=== PATIENT | male | born 1970 ===

== ENCOUNTER 2024-10-05 11:59 | Outpatient (REF) | payer OTHER, SELFPAY ==
--- OUTSIDE RECORDS SUMMARY | 2024-08-20 17:30 | XMS_ITS ---
Author Organization [facility] Address [address] [facility] [address] [place] [address] Care Team Providers Care Consumer Loan Specialist Name Role Phone Robert Garrett Primary Care Provider [phone] Migration, Provider Unavailable Unavailable Allergies Allergen (clinical drug ingredient) Drug/Non Drug Allergy documented on EMR Reaction Allergy Type Onset Date Status CODIENE (uncoded) SOB/HIVES Allergy Ac tive Non-steroidal anti-inflammatory agent (FN) NSAIDs EYELID SWELLING/HIVES Drug Allergy Active Penicillin RASH Drug Allergy Active REASON FOR VISIT [facility] To [facility] Conversion Encounter Medications Medication SIG (Take, Route, Frequency, Duration) Notes Start Date End Date Status Escitalopram Oxalate 20 MG 1 tab(s) oral ly once a day; Duration: 30 day(s) Active ALPRAZolam 0.5 MG 1 tab(s) orally 3 ti mes a day; Duration: 10 day(s) Active valACYclovir HCl 500 MG 1 tab(s) orally bid; Duration: 30 day(s) Active Vitamin D3 50 MCG (1999) 1 tab(s) orally QOD Active Encounters Encounter Location Date Provider Diagnosis [facility] [address] [facility] [address] [place] [address] 08/20/2024 Provider Migration Mood disorder NOS 296.90 ; Herpes labialis 054.2 and Vitamin D deficiency NOS 268.9 Assessments Encounter Date Diagnosis (ICD Code) Assessment Notes Treatment Notes Treatment Clinical Notes Section Notes 08/20/2024 Mood disorder NOS (ICD9-CM - 296.90) 08/20/2024 Herpes labialis (ICD9-CM - 054.2) 08/20/2024 Vitamin D deficiency NOS (ICD9-CM - 268.9) Plan Of Treatment Medication Medication Name Sig Start Date Stop Date Notes Escitalopram Oxalate 20 MG 1 tab(s) oral ly once a day; Duration: 30 day(s) ALPRAZolam 0.5 MG 1 tab(s) orally 3 ti mes a day; Duration: 10 day(s) valACYclovir HCl 500 MG 1 tab(s) orally bid; Duration: 30 day(s) Vitamin D3 50 MCG (2000 UT) 1 tab(s) orally QOD Progress Notes * PRECIOUS TARIQDOB: [birth year] (54 yo M)Acc No.[id number]:08/20/2024 Patient: PRECIOUS ALEGRIA Provider: :1970 A ge:53 Y S ex:Male Date:08/20/2024 Address:[address] [place] [address] Pcp:Robert Garrett Subjective: * Chief Complaints: * 1 . [facility] To [facility] Conversion Encounter. * Medical History: * Allergies: N SAIDs: EYELID SWELLING/HIVES, Penicillin: RASH, CODIENE: SOB/HIVES. Objective: * Vitals: Assessment: * Assessment: 1. M ood disorder NOS - 296.90 (Primary) 2 . H erpes labialis - 054.2 ? 3 . V itamin D deficiency NOS - 268.9 Plan: * Treatment: 2. H erpes labialis Continue valACYclovir HCl Tablet, 500 MG, 1 tab(s), orally, bid, 30 day(s), 60, Refills 3. ? 3. V itamin D deficiency NOS Continue Vitamin D3 Tablet, 50 MCG (2000 UT), 1 tab(s), orally, QOD. * Images: * Electronic signature of Prov ider Migration on 10/05/2024 at 12:43 PM EDT Sign off status: Pending * Provider: Date: 08/20/2024 Generated for Britni candelario/Kashmir/Karenitting on: 10/05/2024 12:43 PM EDT
--- NOTE | 2024-10-05 | EMG_ITS ---
Bilateral median and ulnar motor and sensory studies were performed bilateral radial sensory and median and lateral antecubital brachial sensory studies were performed. Bilateral tibial and peroneal motor studies were performed and bilateral superficial peroneal and sural sensory studies were performed tibial H reflexes were obtained and paraspinal muscles were tested in upper and lower extremities. Impression: 1. [id number] bilateral median neuropathy across carpal tunnel 2. 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 Chronic bilateral lower lumbar probably L4 radiculopathy MTDD
--- OUTSIDE RECORDS SUMMARY | 2024-10-05 12:43 | XMS_ITS | Clinical Summary ---
Author Organization [facility] Address [address] [place] [address] Care Team Providers Care Wind Turbine Installer Name Role Phone AnaMatilon Primary Care Provider Unav ailable Allergies Active Allergy Reactions Criticality Noted Date Comments Codeine 08/20/2018 Nsaids 08/20/2018 Penicillins 08/20/2018 Active Problems Problem Noted Date Diagnosed Date Father alive and healthy 08/21/2018 Overview (04/05/2023): Onset: 09/24/2011; Description: Sleep Medicine Migration - Source Name: FATHER: The father is living Single 08/21/2018 Overview (04/05/2023): Onset: 09/24/2011; Description: Sleep Medicine Migration - Source Name: MARITAL STATUS: Single Daily caffeine consumption 08/21/2018 Overview (04/05/2023): Onset: 09/24/2011; Description: Sleep Medicine Migration - Source Name: CAFFEINE: Consumes a moderate amount of caffeinated beverages daily Pets/Animals: Dog 08/21/2018 Overview (04/05/2023): Onset: 09/24/2011; Description: Sleep Medicine Migration - Source Name: PETS IN HOME: Dogs Daily alcohol use 08/21/2018 Overview (04/05/2023): Onset: 09/24/2011; Description: Sleep Medicine Migration - Source Name: ALCOHOL: The patient consumes 1 beverage daily Mother 08/21/2018 Overview (04/05/2023): Onset: 09/24/2011; Description: Sleep Medicine Migration - Source Name: MOTHER: The mother is Tonsillectomy with adenoidectomy 08/21/2018 Overview (04/05/2023): Onset: 10/24/2011; Description: Sleep Medicine Migration - Source Name: SURGICAL: Tonsils and adenoids Obesity 08/21/2018 Overview (04/05/2023): Onset: 09/24/2011; Description: Sleep Medicine Migration - Source Name: Obesity NOS; Notes: ASSESSMENT: main risk for JAYLYN. Hyperlipidemia 08/21/2018 Overview (04/05/2023): Onset: 10/24/2011; Description: Sleep Medicine Migration - Source Name: MEDICAL: Hyperlipidemia Circadian rhythm sleep disorder, shift work type 08/21/2018 Overview (04/05/2023): Onset: 09/24/2011; Description: Sleep Medicine Migration - Source Name: Dsord circadian rhy shft wrk sleep phase type; Notes: ASSESSMENT: he sleeps only 4-6 hrs on days when he works at night. 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 Seizure disorder 08/21/2018 Overview (04/05/2023): Onset: 10/24/2011; Description: Sleep Medicine Migration - Source Name: MEDICAL: Seizure disorder Alcohol drinker 08/21/2018 Overview (04/05/2023): Onset: 09/24/2011; Description: Sleep Medicine Migration - Source Name: ALCOHOL: The patient consumes 1 beverage monthly Does not exercise 08/21/2018 Overview (04/05/2023): Onset: 09/24/2011; Description: Sleep Medicine Migration - Source Name: EXERCISES: The patient does not exercise regularly Obstructive sleep apnea, adult 08/21/2018 Overview (04/05/2023): Onset: 09/24/2011; Description: Sleep Medicine Migration - Source Name: Dsord, 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 CPAP titration 10/18/11: Adequate titration at [id number]. Higher pressure caused more arousals. Never used tobacco 08/21/2018 Overview (04/05/2023): Onset: 09/24/2011; Description: Sleep Medicine Migration - Source Name: TOBACCO USE: Has no smoking history Restless legs syndrome 08/21/2018 Overview (04/05/2023): Onset: 09/24/2011; Description: Sleep Medicine Migration - Source Name: Syndrome, restless legs (333.94); Notes: ASSESSMENT: typical symptoms, but infrequent. May be secondary to insufficient sleep or under-treated JAYLYN. PLM index was 48/hr and PLM arousal index was 5/hr. He has L4-L5 herniation, and gets epidural shots, last one was long time ago. Hypertension 08/21/2018 Overview (04/05/2023): Onset: 10/24/2011; Description: Sleep Medicine Migration - Source Name: MEDICAL: Hypertension Social History Tobacco Use Types Packs/Day Years Used Date Smoking Tobacco: Never Assessed Sex and Gender Information Value Date Recorded Sex Assigned at Not on file Legal Sex Male 7:26 PM EDT Gender Identity Not on file Sexual Orientation Not on file Last Filed Vital Signs Vital Sign Reading Time Taken Comments Blood Pressure 122/84 10/24/2011 11:30 AM EDT LUE/Sitting LUE/Sitting Pulse - - Temperature - - Respiratory Rate 16 10/24/2011 11:3 0 AM EDT Oxygen Saturation - - Inhaled Oxygen Concentration - - Weight 107 kg (236 lb 7.8 oz) 10/24/2011 11:30 AM EDT Height 179.1 cm (5' 10.5 ) 10/24/2011 1 1:30 AM EDT Body Mass Index 33.45 10/24/2011 11:30 AM EDT Plan of Treatment Health Maintenance Due Date Last Done Comments Hepatitis C Screening 1970 DTaP/Tdap/Td (1 - Tdap) 1986 Hep B (1 of 3 - 19+ 3-dose series) 09/17/1987 Pneumococcal 50+ years (1 of 1 - PCV) 2018 Zoster (Shingrix) (1 of 2) 2018 COVID-19 Vaccine (1 - 2023-2 5 season) 2023 Influenza (#1) 2024 HPV Vaccine (No Doses Required) Completed Hep A Aged Out No longer eligi ble based on patient's age to complete this topic Hib Aged Out No longer eligi ble based on patient's age to complete this topic Meningococcal ACWY Aged Out No longer eligible based on patient's age to complete this topic Care Teams Wind Turbine Installer Relationship Specialty Start Date End Date Mati Perez PCP - General 10/06/22
--- OUTSIDE RECORDS SUMMARY | 2024-10-05 12:43 | XMS_ITS | Clinical Summary ---
Author Organization [facility] Address [address] [place] [address] Care Team Providers Care Shake Cutter Name Role Phone Unavailable Primary Care Provider Unavailabl e Allergies Active Allergy Reactions Criticality Noted Date Comments Hydrocodone GI Intolerance/Nausea/Vomiting Low 07/02 Nsaids Angioedema High 07/30/2022 Penicillins Rash/Dermatitis Low 07/30/2022 Medications apixaban (ELIQUIS) 2.5 MG tablet Take 2.5 mg by mouth 2 (two) times a day. Active docusate sodium (COLACE) 100 MG capsule Take 100 mg by mouth 2 (two) times a day as needed. Active HYDROmorphone (DILAUDID) 2 MG tablet Take 2 mg by mouth every 4 (four) hours as needed. Active magnesium hydroxide (MILK OF MAGNESIA) 400 mg/5 mL suspension Take 30 mL by mouth daily as needed. Active polyethylene glycol (miraLAx) 17 GM/SCOOP powder Take 17 g by mouth daily. Active senna (SENOKOT) syrup Take 8.8 mg by mouth nightly as needed. Active traMADol (ULTRAM) 50 MG tablet Take 50 mg by mouth 4 times daily (every 6 hours) as needed. Active acetaminophen (TYLENOL) 325 MG tablet Take 650 mg by mouth every 6 (six) hours. Active hydroCHLOROthia zide (HYDRODIURIL) 25 MG tablet Take 25 mg by mouth daily. Active cyanocobalamin (VITAMIN B12) 1000 MCG tablet Take 1,000 mcg by mouth daily. Active cholecalciferol (CHOLECALCIFERO L) 25 MCG (1000 UT) tablet Take 1,000 Units by mouth daily. Active ipratropium (ATROVENT) 0.03 % nasal spray 1 spray into each nostril daily on an empty stomach. Active losartan (COZAAR) 25 MG tablet Take 25 mg by mouth daily. Active OMEprazole (PriLOSEC) 20 MG capsule Take 20 mg by mouth every morning before breakfast. Active Social History Tobacco Use Types Packs/Day Years Used Date Smoking Tobacco: Never Assessed OASIS D0700: Social Isolation Answer Da te Recorded Frequency of experiencing loneliness or isolatio n Never 08/06/2022 OASIS A1250: Transportation Answer Date Recorded Lack of Transportation (Medical) No 08/06/2022 Lack of Transportation (Non-Medical) No 08/06/2022 Patient Unable or Declines to Respond No 08/06/2022 Sex and Gender Information Value Date Recorded Sex Assigned at Not on file Legal Sex Male 3:07 PM EDT Gender Identity Not on file Sexual Orientation Not on file Last Filed Vital Signs Vital Sign Reading Time Taken Comments Blood Pressure 122/82 08/06/2022 9:05 AM EDT Pulse 90 08/06/2022 9:04 AM EDT Temperature 36.6 C (97.8 F) 08/06/2022 9:04 AM EDT Respiratory Rate 16 08/06/2022 9:04 AM EDT Oxygen Saturation 95% 08/06/2022 9:04 AM EDT Inhaled Oxygen Concentration - - Weight - - Height - - Body Mass Index - - Plan of Treatment Health Maintenance Due Date Last Done Comments Hepatitis C Virus Screening 1970 HIV Screening 1981 DTaP/Tdap/Td Vaccines (1 - Tdap) 09/17/1987 Hepatitis B Vaccines (1 of 3 - 19+ 3-dose series) 08/30 Colonoscopy 2013 Pneumococcal Vaccines 50+ (1 of 1 - PCV) 2018 Zoster (Shingles) Vaccine (1 of 2) 2018 COVID-19 Vaccine (1 - 2023- season) 2023 Influenza Vaccine 09/30/2024 11/21/2019 Insurance Advance Directives Documents on File Type Date Recorded Patient Dobby Looms Pegger Expl anation Power of Clay Carman-Scan * Full Code (Latest Code Status on File) Date Activated Date Inactivated Comments 08/01/2022 3:31 PM Full Code
--- OUTSIDE RECORDS SUMMARY | 2024-10-05 12:43 | XMS_ITS | Clinical Summary ---
Author Organization [facility] Address [address] [address] Phone Care Team Providers Care Supervisor Accounting Clerks Name Role Phone ChacerosauraElysia Gimenez DO Primary Care Pro vider Allergies Active Allergy Reactions Criticality Noted Date Comments Amoxicillin 12/16/2019 Aspirin Hives 12/16/2019 Codeine Rash Low 12/16/2019 Ibuprofen Hives 12/16/2019 Nsaids Hives 12/16/2019 Medications valACYclovir (VALTREX) 1 g tablet Take 1,000 mg by mouth 2 (two) times a day Active losartan (COZAAR) 25 MG tablet Take 25 mg by mouth 1 (one) time each day Active atorvastatin (LIPITOR) 10 MG tablet 2 Active potassium citrate 10 MEQ (1080 MG) CR tablet Take 2 tablets (20 mEq total) by mouth in the morning and 2 tablets (20 mEq total) in the evening. Take with meals. Do not crush, chew, or split.. 120 tablet 11 5 05/26/19 26 Active hydroCHLOROthi azide 25 MG tablet TAKE 1 TABLET(25 MG) BY MOUTH 1 TIME EACH DAY 90 tablet 3 5 Active hydroCHLOROthi azide 25 MG tablet Take 1 tablet (25 mg total) by mouth 1 (one) time each day 90 tablet 3 4 09/13/19 25 Discontinued Active Problems Problem Noted Date Diagnosed Date Personal history of kidney stones 02/10/2020 Encounters Date Type Department Care Team Description 09/11/2024 Refill [facility], [address] [place] [phone] Mark Alonzo MD 08/02/2024 Orders Only [facility] [address] [place] [address] Katelynn York MA Personal history of kidney stones (Primary Dx); Stage 3 chronic kidney disease, not otherwise specified (HCC) 08/02/2024 Orders Only [facility] [address] [place] [phone] Mark Alonzo MD Personal history of kidney stones (Primary Dx) 08/01/2024 Telephone [facility] [address] [place] [address] Katelynn York MA from Last 3 Months Immunizations Immunization Administration Dates Next Due Influenza, Quadrivalent, Preservative Free 11/20 Social History Tobacco Use Types Packs/Day Years Used Date Smoking Tobacco: Unknown Sex and Gender Information Value Date Recorded Sex Assigned at Not on file Legal Sex Male 1:47 PM EDT Gender Identity Not on file Sexual Orientation Not on file Last Filed Vital Signs Vital Sign Reading Time Taken Comments Blood Pressure 136/72 05/25/2024 4:10 PM EDT Pulse - - Temperature - - Respiratory Rate - - Oxygen Saturation - - Inhaled Oxygen Concentration - - Weight - - Height - - Body Mass Index - - Plan of Treatment Upcoming Encounters Date Type Department Care Team (Late st Contact Info) Description 05/26/2025 1:45 PM EDT Office Visit [facility] [address] [place] [address] Mark Alonzo MD [address] [place] [address] [place] [address] Health Maintenance Due Date Last Done Comments Hepatitis B Vaccine (1 of 3 - 19+ 3-dose series) 09/16 Pneumococcal Vaccine: 50+ Years (1 of 2 - PCV) 988 Colorectal Cancer Screening: Annual FOBT 2017 Colorectal Cancer Screening: Colonoscopy 2017 Colorectal Cancer Screening: Sigmoidoscopy 2017 Influenza Vaccine (#1) 2024 11/21/2019 Insurance Care Teams Supervisor Accounting Clerks Relationship Specialty Start Date End Date Elysia Lopez DO [address] [place] [address] PCP - General Internal Medicine 05/24/24
== END 2024-10-05 12:00 | disposition home or self-care (01) ==
LOC: HO.NEURO 11:59
PROVIDERS: PCP Internal Medicine; Visit Provider Psychiatry & Neurology Neurology
DX: G62.9 Polyneuropathy, unspecified (principal); M79.18 Myalgia, other site; R25.2 Cramp and spasm; R20.0 Anesthesia of skin; G72.9 Myopathy, unspecified
CPT/HCPCS: 95886; 95913

== ENCOUNTER → 2024-10-05 12:40 | Outpatient (BNV) | payer OTHER, SELFPAY | PROVIDERS: PCP Internal Medicine; Visit Provider Psychiatry & Neurology Neurology | DX: G56.03 Carpal tunnel syndrome, bilateral upper limbs (principal) | CPT/HCPCS: 95886; 95913 ==

== ENCOUNTER 2024-12-21 08:41 | Outpatient (REF) | payer SELFPAY ==
--- OUTSIDE RECORDS SUMMARY | 2024-08-20 17:30 | XMS_ITS ---
Author Organization [facility] Address [address] [facility] [address] [place] [address] Care Team Providers Care Treasury Director Name Role Phone DR. Robert Garrett Primary Care Provider [phone] Migration, Provider Unavailable Unavailable Allergies Allergen (clinical drug ingredient) Drug/Non Drug Allergy documented on EMR Reaction Allergy Type Onset Date Status codeine CODIENE (uncoded) SOB/HIVES Allergy Ac tive Non-steroidal anti-inflammatory agent (FN) NSAIDs EYELID SWELLING/HIVES Drug Allergy Active Penicillin RASH Drug Allergy Active REASON FOR VISIT [facility] To [facility] Conversion Encounter Medications Medication SIG (Take, Route, Frequency, Duration) Notes Start Date End Date Status Escitalopram Oxalate 20 MG Tablet 1 tab(s) orally once a day; Duration: 30 day(s) Active ALPRAZolam 0.5 MG Tablet Disintegrating 1 tab(s) orally 3 times a day; Duration: 10 day(s) Active valACYclovir HCl 500 MG Tablet 1 tab(s) orally bid; Duration: 30 day(s) Active Vitamin D3 50 MCG (1999) Tablet 1 tab(s) orally QOD Active Encounters Encounter Location Date Provider Diagnosis [facility] [address] [facility] [address] [place] [address] 08/20/2024 Provider Migration Mood disorder NOS 296.90 [...] Stop Date Notes Escitalopram Oxalate 20 MG Tablet 1 tab( s) orally once a day; Duration: 30 day(s) ALPRAZolam 0.5 MG Tablet Disintegrating 1 tab(s) orally 3 times a day; Duration: 10 day(s) valACYclovir HCl 500 MG Tablet 1 tab(s) orally bid; Duration: 30 day(s) Vitamin D3 50 MCG (2000 UT) Tablet 1 tab(s) orally QOD Progress Notes * PRECIOUS TARIQDOB: [birth year] (54 yo M)Acc No.[id number]:08/20/2024 Patient: PRECIOUS ALEGRIA Provider: :1970 A ge:53 Y S ex:Male Date:08/20/2024 Address:[address] [place] [address] Pcp:DR. Robert Garrett Subjective: * Chief Complaints: * [facility] Conversion Encounter * Allergies: N SAIDs: EYELID SWELLING/HIVESPenicillin: RASHCODIENE: SOB/HIVES Assessment: * Assessment: 1. M ood disorder [...] (2000 UT), 1 tab(s), orally, QOD. * Electronic signature of Prov ider Migration on 12/21/2024 at 09:10 AM EDT Sign off status: Pending * Provider: Date: 0 08/20/2024 Generated for Britni candelario/Kashmir/Karenitting on: 1 09:10 AM EDT
--- OUTSIDE RECORDS SUMMARY | 2024-12-21 09:10 | XMS_ITS | Clinical Summary ---
Author Organization [facility] Address [address] [place] [address] [place] [address] Phone Care Team Providers Care Brick Maker Name Role Phone Elysia Lopez DO Primary Care Pro vider Allergies Active [...] day Active atorvastatin (LIPITOR) 10 MG tablet 04/11/2021 Active potassium citrate 10 MEQ (1080 MG) CR tablet Take 2 tablets (20 mEq total) by mouth in the morning and 2 tablets (20 mEq total) in the evening. Take with meals. Do not crush, chew, or split.. 120 tablet 11 05/25/2024 Active hydroCHLOROthia zide 25 MG tablet TAKE 1 TABLET(25 MG) BY MOUTH 1 TIME EACH DAY 90 tablet 3 09/12/2024 Active Active Problems Problem Noted Date Diagnosed Date Personal history of kidney stones 02/10/2020 Immunizations Immunization Administration Dates Next Due Influenza, [...] Office Visit [facility], [address] [place] [address] Mark Alonzo MD [address] [facility] [place] [address] Health Maintenance Due Date Last Done Comments Hepatitis B Vaccine (1 of 3 - 19+ 3-dose series) 09/16 Pneumococcal Vaccine: 50+ Years (1 of 2 - PCV) 988 Colorectal Cancer Screening: Annual FOBT 2017 Colorectal Cancer Screening: Colonoscopy 2017 Colorectal Cancer Screening: Sigmoidoscopy 2017 Influenza Vaccine (#1) 2024 11/21/[address] [place] [address] Care Teams Brick Maker Relationship Specialty Start Date End Date Elysia Lopez DO [address] [place] [id number] PCP - General Internal Medicine 05/24/24
--- OUTSIDE RECORDS SUMMARY | 2024-12-21 09:10 | XMS_ITS | Patient Health Record ---
Author Organization [facility] Address [address] [facility] [address] [place] [address] Care Team Providers Care Drying Frame Operator Name Role Phone DR. Robert Garrett Primary Care Provider [phone] Migration, Provider Unavailable Unavailable Allergies Allergen (clinical drug ingredient) Drug/Non Drug Allergy documented on EMR Reaction Allergy Type Onset Date Status codeine CODIENE (uncoded) SOB/HIVES Allergy Ac tive Non-steroidal anti-inflammatory agent (FN) NSAIDs EYELID SWELLING/HIVES Drug Allergy Active Penicillin RASH Drug Allergy Active Reason For Referral No Information Medications Medication SIG (Take, Route, Frequency, Duration) Notes Start Date End Date Status Escitalopram Oxalate 20 MG Tablet 1 tab(s) orally once a day; Duration: 30 day(s) Active ALPRAZolam 0.5 MG Tablet Disintegrating 1 tab(s) orally 3 times a day; Duration: 10 day(s) Active valACYclovir HCl 500 MG Tablet 1 tab(s) orally bid; Duration: 30 day(s) Active Vitamin D3 50 MCG (2000 UT) Tablet 1 tab(s) orally QOD Active Immunizations Vaccine Route Administration Date Status Comme nts HEPATITIS A (ADULT) IM Intramuscular 07/02/2011 Administer ed HEPATITIS A (ADULT) IM Intramuscular 03/11/2012 Administer ed Social History Social History Additional Details Category Social Info Options Details General Occupation: Polysomnographe r Alcohol: yes OCASSIONAL Sexually active: yes Recreational drug use: no Exercise: no Home smoke detector use: yes Partners one Partner Gender male Condom use no Pets yes DOG, 2 Domestic partner yes 10 MONTHS Seat Belt Use yes Living Will no Problems Problem Type SNOMED Code ICD Code Onset Dates Problem Status W/U Status Risk Notes Problem Vitamin D deficiency (17227429) Vitamin D deficiency NOS (268.9) Active confirmed Problem Hyperlipidemia (71126394) Hyperlipidemia (272.4) Active confirmed Problem Obstructive sleep apnea (84796946) Obstructive sleep apnea (327.23) Active confirmed Encounters Encounter Location Date Provider Diagnosis [facility] [address] [place] [address] 08/20/2024 Provider Migration Mood disorder NOS 296.90 ; Herpes labialis 054.2 and Vitamin D deficiency NOS 268.9 Assessments Encounter Date Diagnosis (ICD Code) Assessment Notes Treatment Notes Treatment Clinical Notes Section Notes 08/20/2024 Mood disorder NOS (ICD9-CM - 296.90) 08/20/2024 Herpes labialis (ICD9-CM - 054.2) 08/20/2024 Vitamin D deficiency NOS (ICD9-CM - 268.9) Plan Of Treatment No Information Insurance Providers Payer Name Payer Address Payer Phone Subscriber Number Group Number Insured Name Patient Relationship to Insured Coverage Start Date Coverage End Date [facility] [address] [facility] [place] [address] [id number] PRECIOUS TARIQ Self - patient is the insured Medical (General) History Medical History History ICD Code HERNIATED DISC HERPES LABIALIS HYPERCHOLESTEROLEMIA JAYLYN CPAP IS AT 7CM Surgical History Surgery Date(Month/Year) U TRIPLE P WITH T HEMMORHOIDECTOMY CHAILASAZIION Hospitalization History Reason Date(Month/Year) TONGUE LACERATION
--- OUTSIDE RECORDS SUMMARY | 2024-12-21 09:10 | XMS_ITS | Encounter Summary ---
Author Organization [facility] Address [address] [address] Phone Care Team Providers Care Guard Driver Name Role Phone Elysia Lopez DO Primary Care Pro vider Encounter Details Date Type Department Care Team (Late st Contact Info) Description 05/18/2024 Documentation Only [facility] [address] [place] [address] Katelynn [place], [place] [address] [place] [address] Social History Tobacco Use Types Packs/Day Years Used Date Smoking Tobacco: Unknown Sex and Gender Information Value Date Recorded Sex Assigned at Not on file Legal Sex Male 1:47 PM EDT Gender Identity Not on file Sexual Orientation Not on file documented as of this encounter Plan of Treatment Upcoming Encounters Date Type Department Care Team (Late st Contact Info) Description 05/26/2025 1:45 PM EDT Office Visit [facility] [address] [place] [address] Mark Alonzo MD [address] [place] [place] [address] documented as of this encounter Visit Diagnoses Not on filedocumented in this encounter Care Teams Guard Driver Relationship Specialty Start Date End Date Elysia Lopez DO [address] [place] [address] PCP - General Internal Medicine 05/24/24 documented as of this encounter
--- OUTSIDE RECORDS SUMMARY | 2024-12-21 09:10 | XMS_ITS | Clinical Summary ---
Author Organization [facility] Address [address] [place] [id number] Care Team Providers Care Laboratory Sampler Name Role Phone Unavailable Primary Care Provider [...] Zoster (Shingles) Vaccine (1 of 2) 2018 Influenza Vaccine 09/30/2024 11/21/2019 COVID-19 Vaccine (1 - 2023- season) 2024 RSV Vaccine 50 years and old er and Patients (1 - 1-dose 75+ series) 09/17/2043 Insurance Advance Directives Documents on File Type Date Recorded Patient Spectrograph Operator Expl anation Power of Billet Recorder-Scan * Full Code (Latest Code Status on File) Date Activated Date Inactivated Comments 08/01/2022 3:31 PM Full Code
--- OUTSIDE RECORDS SUMMARY | 2024-12-21 09:10 | XMS_ITS | Clinical Summary ---
Author Organization [facility] Address [address] [place] [address] Care Team Providers Care Inspector Casing Name Role Phone AnaMatilon Primary Care Provider [...] years. CPAP titration 10/18/11: Adequate titration at [id number]. Higher pressure caused more arousals. Never used [...] (Shingrix) (1 of 2) 2018 COVID-19 Vaccine ( - 2024-2 6 season) 2024 Influenza (#1) 2024 HPV Vaccine (No Doses Required) Completed Hep A Aged Out No longer eligi ble based on patient's age to complete this topic Hib Aged Out No longer eligi ble based on patient's age to complete this topic Meningococcal ACWY Aged Out No longer eligible based on patient's age to complete this topic Care Teams Inspector Casing Relationship Specialty Start Date End Date Mati Perez PCP - General 10/06/22
--- OUTSIDE RECORDS SUMMARY | 2024-12-21 09:10 | XMS_ITS | Encounter Summary ---
Author Organization [facility] Address [place] [address] Phone Care Team Providers Care City Solicitor Name Role Phone Elysia Lopez DO Primary Care Pro vider Encounter Details Date Type Department Care Team (Late st Contact Info) Description 09/06/2021 Documentation Only [facility] [address] [place] [address] Mark Alonzo MD [address] [facility] [address] [place] [place] [address] Social History Tobacco Use Types Packs/Day Years [...] Visit [facility] [address] [place] [address] Mark Alonzo MD [address] [place] [place] [address] documented as of this encounter Visit Diagnoses Not on filedocumented in this encounter Care Teams City Solicitor Relationship Specialty Start Date End Date Elysia Lopez DO [address] [place] [id number] PCP - General Internal Medicine 05/24/24 documented as of this encounter
--- NOTE | 2024-12-21 15:01 | EMG_ITS ---
Chief complaint:?M60.9 Myositis, unspecified Reason for referral: R/O myopathy or myositis Referred by:?Marina Ellis MD Procedure done: Left upper and left lower extremities EMG Mr. Silva was here for some additional electromyogram to rule out a myopathic process. Left upper and lower extremity study including proximal muscles was performed. Decreased recruitment and long duration potentials were noted in left extensor digitorum brevis and tibialis anterior. Impression: This impression should be read in addition to the impression of a study in Sep 2024. This study did not reveal myopathic findings in left upper and lower extremities. Lexa Ji MD [facility] [address] extremities [facility]
== END 2024-12-21 08:42 | disposition home or self-care (01) ==
LOC: HO.NEURO 08:41
PROVIDERS: Visit Provider Psychiatry & Neurology Neurology
DX: M60.9 Myositis, unspecified (principal)
CPT/HCPCS: 95886

== ENCOUNTER → 2024-12-21 15:01 | Outpatient (BNV) | payer OTHER, SELFPAY | PROVIDERS: Visit Provider Psychiatry & Neurology Neurology | DX: Z00.00 Encounter for general adult medical examination without abnormal findings (principal) | CPT/HCPCS: 95860 ==